=== PATIENT | female | born 1975 | race Caucasian/White ===

== ENCOUNTER → 2016-04-12 | Outpatient (CLI) | payer BC | LOC: FIMAGING 07:25 | DX: Z12.31 Encounter for screening mammogram for malignant neoplasm of breast (principal) | CPT/HCPCS: G0202 ==

== ENCOUNTER → 2016-07-09 | Outpatient (CLI) | payer BC | LOC: FIMAGING 11:20 | PROVIDERS: ATTEND Surgery | DX: E04.2 Nontoxic multinodular goiter (principal) ==

== ENCOUNTER → 2017-04-13 | Outpatient (CLI) | payer BC | LOC: FIMAGING 08:09 | PROVIDERS: ATTEND Obstetrics & Gynecology | DX: Z12.31 Encounter for screening mammogram for malignant neoplasm of breast (principal) ==

== ENCOUNTER → 2017-07-12 | Outpatient (CLI) | payer BC | LOC: FIMAGING 16:35 | PROVIDERS: ATTEND Surgery | DX: E04.1 Nontoxic single thyroid nodule (principal) ==

== ENCOUNTER → 2017-10-31 | Outpatient (CLI) | payer BC | LOC: FIMAGING 13:49 | PROVIDERS: ATTEND Internal Medicine | DX: N83.202 Unspecified ovarian cyst, left side (principal); Z97.5 Presence of (intrauterine) contraceptive device ==

== ENCOUNTER → 2017-12-28 | Outpatient (CLI) | payer BC | LOC: FIMAGING 07:16 | PROVIDERS: ATTEND Surgery | DX: R10.10 Upper abdominal pain, unspecified (principal) ==

== ENCOUNTER 2018-01-27 11:05 | Day surgery (SDC) | payer BC ==
[2018-01-27] MEDS ORDERED: ceFAZolin 2 GM/DEXTROSE 100 ML IV ONE (11:45)
[2018-01-27] MEDS ORDERED: LIDOCAINE 1% 2 ML INJ ID PRN (11:46)
[2018-01-27] MEDS ORDERED: LR 1,000 ML IV ONE (11:46)
[2018-01-27] MEDS ORDERED: BUPIVACAINE 0.25% 10 ML SDV ONE (12:35)
[2018-01-27] MEDS ORDERED: IOTHALAMATE MEG (CONRAY) 50 ML VIAL IV ONE (12:36)
--- NOTE | 2018-01-27 12:50 | PDHPUP ---
History & Physical Update H&P update statement: This history and physical update is based on an assessment of the patient which was completed after admission or registration (within 24 hours), but prior to the surgery/procedure. H&P update: H&P reviewed & patient examined, no change in patient's condition since H&P completed
[2018-01-27] MEDS ORDERED: ACETAMINOPHEN 500 MG TAB PO PRN (14:06)
[2018-01-27] MEDS ORDERED: DEXAMETHASONE 4 MG/ML VIAL IVP PRN (14:06)
[2018-01-27] MEDS ORDERED: oxyCODONE IR 5 MG TAB PO PRN (14:06)
[2018-01-27] MEDS ORDERED: ONDANSETRON 4 MG/2 ML VIAL IVP PRN ×2 (14:06→15:43)
[2018-01-27] MEDS ORDERED: NALOXONE HCL 0.4 MG/ML INJ IVP PRN (14:06)
[2018-01-27] MEDS ORDERED: ALBUTEROL 3 ML DEYVIAL IH PRN (14:06)
--- NOTE | 2018-01-27 14:08 | PDANEPAE ---
ANE History of Present Illness Lap Sugey ANE Past Medical History - Cardiovascular History Hx Hypertension: No Hx Arrhythmias: No Hx Chest Pain: No Hx Coronary Artery / Peripheral Vascular Disease: No Hx CHF / Valvular Disease: No Hx Palpitations: Yes Cardiovascular History Comment: HX PALPITATIONS - MONITORED. HEART MURMUR - MILD. PFO SINCE - SMALL - Pulmonary History Hx COPD: No Hx Asthma/Reactive Airway Disease: No Hx Recent Upper Respiratory Infection: No Hx Oxygen in Use at Home: No Hx Sleep Apnea: No Sleep Apnea Screening Result - Last Documented: Negative - Neurologic History Hx Cerebrovascular Accident: No Hx Seizures: No Hx Dementia: No Neurologic History Comment: HX - HEADACHES - Endocrine History Hx Diabetes: No Endocrine History Comment: GOITER - Renal History Hx Renal Disorders: No - Liver History Hx Hepatic Disorders: No Hepatic History Comment: GALL BLADDER SXS CURRENTLY - Neurological & Psychiatric Hx Hx Neurological and Psychiatric Disorders: No - Cancer History Hx Cancer: No - Congenital Disorder History Hx Congenital Disorders: No - GI History Hx Gastrointestinal Disorders: Yes Gastrointestinal History Comment: NAUSEA AFTER MEALS - Other Health History Other Health History: ACNE. HX HPV - CLEARED IN 2012 - Surgical History Prior Surgeries: CHILDHOOD URINARY SURG. CORTISONE INJS CERVICAL ANE Review of Systems Review of Systems: - Exercise capacity METS (RN): 6 METS ANE Patient History - Allergies Allergies/Adverse Reactions: No Known Allergies Allergy (Unverified 10/20/11 16:59) - Home Medications Home Medications: [place]-3 Fatty Acids/Fish Oil [[place] 3 1,000 mg Softgel] 09/20/13 [Last Taken ] Vit27&Calcium/Iron/FA [] 09/20/13 [Last Taken 01/20/18] Veltin Gel 01/23/18 [Last Taken 01/13/18] - NPO status NPO Since - Liquids (Date): 01/26/18 NPO Since - Liquids (Time): 21:30 NPO Since - Solids (Date): 01/26/18 NPO Since - Solids (Time): 21:30 - Smoking Hx Smoking Status: Never smoked - Family Anes Hx Family Hx Anesthesia Complications: NEG ANE Labs/Vital Signs - Vital Signs Blood Pressure: 108/69 Heart Rate: 56 Respiratory Rate: 18 O2 Sat (%): 99 Height: 165.1 cm Weight: 58.06 kg ANE Physical Exam - Airway Neck exam: FROM Mallampati Score: Class 2 Mouth exam: normal dental/mouth exam - Pulmonary Pulmonary: clear to auscultation - Cardiovascular Cardiovascular: regular rate and rhythym - ASA Status ASA Status: II ANE Anesthesia Plan Anesthesia Plan: general endotracheal anesthesia
[2018-01-27] MEDS ORDERED: PROPOFOL 200 MG/20 ML VIAL ONE (14:12)
[2018-01-27] MEDS ORDERED: LIDOCAINE 2% 5 ML SDV ONE (14:13)
[2018-01-27] MEDS ORDERED: fentaNYL 100 MCG/2 ML INJ ONE ×3 (14:14→15:40)
[2018-01-27] MEDS ORDERED: ONDANSETRON 4 MG/2 ML VIAL ONE (14:20)
[2018-01-27] MEDS ORDERED: ROCURONIUM 50 MG/5 ML VIAL ONE (14:20)
[2018-01-27] MEDS ORDERED: DEXAMETHASONE 4 MG/ML VIAL ONE (14:20)
[2018-01-27] MEDS ORDERED: SUGAMMADEX SODIUM 200 MG/2 ML VIAL IVP ONE (15:11)
--- NOTE | 2018-01-27 15:27 | POSTANESTH ---
Post Anesthetic Evaluation Cardiovascular Status: Normal, Stable Respiratory Status: Normal, Stable Level of Consciousness/Mental Status: Moderately Sleepy Pain Control: Adequate, Prn Tx Ordered Nausea/Vomiting Control: Adequate, Prn Tx Ordered Complications Possibly Related to Anesthesia: None Noted
--- NOTE | 2018-01-27 15:42 | POSTOPPROG ---
Post Op Note Date of Operation: 01/27/18 Surgeon: David Alcantara (, FACS) Transfer Man: Bobbi Anguiano RN-FA Anesthesiologist: Zia Bains DO Anesthesia: GET(General Endotracheal) Pre-op Diagnosis: cholelithiasis Post-op Diagnosis: cholelithiasis/bilateral paratubal cysts Procedure: lap cholecystectomy/removal paratubal cysts Inf/Abcess present in the surg proc area at time of surgery?: No Complications: none Specimen(s): gallbladder, left paratubal cyst
[2018-01-27] MEDS ORDERED: HYDROmorphONE/DILAUDID 1 MG/ML INJ IVP PRN (15:43)
[2018-01-27] MEDS: fentaNYL 100 MCG/2 ML INJ IVP PRN ×4 (15:44→16:27)
[2018-01-27] MEDS ORDERED: HYDROCODONE/APAP 5/325 TAB PO PRN (15:45)
[2018-01-27] MEDS ORDERED: LR 1,000 ML IV SCH (16:00)
[2018-01-27] MEDS ORDERED: HYDROmorphONE/DILAUDID 2 MG/ML INJ ONE (16:08)
[2018-01-27] MEDS ORDERED: HYDROCODONE/APAP 5/325 TAB ONE (16:08)
[2018-01-27] MEDS: HYDROmorphONE/DILAUDID 2 MG/ML INJ IVP PRN ×2 (16:10→16:28)
--- NOTE | 2018-01-27 16:43 | GOP ---
DATE OF OPERATION: 01/27/2018 SURGEON: David Alcantara MD, FACS SSRS DEVELOPER: Bobbi Kemp RN. ANESTHESIA: General endotracheal. ANESTHESIOLOGIST: Zia Bains DO. PREOPERATIVE DIAGNOSIS: 1. Cholelithiasis. 2. History of left ovarian cyst. POSTOPERATIVE DIAGNOSIS: 1. Cholelithiasis and chronic cholecystitis. 2. Bilateral paratubal cysts. PROCEDURE PERFORMED: Laparoscopic cholecystectomy and incidental removal of paratubal cysts FINDINGS: Mild chronic appearing inflammation of the gallbladder with typical anatomy. Normal-appearing liver. Few adhesions between the omentum and infundibulum of the gallbladder. Bilateral paratubal cysts with normal- appearing ovaries and uterus. Unremarkable appendix. ESTIMATED BLOOD LOSS: 10 cc. DESCRIPTION OF PROCEDURE: After informed consent was obtained, the patient was brought to the operating room and placed under general anesthesia. The abdomen was prepped and draped in usual fashion. Before proceeding, a time-out and identification of patient was performed. The safe and timely completion of the operation required the help of a skilled surgeon assistant and Bobbi Anguiano RN- FA was requested to attend 0.25% Marcaine was used to infiltrate the infraumbilical skin. A longitudinal incision was made through the base of the umbilicus and carried through skin and subcutaneous tissues. Hemostasis was secured with cautery. Ventral traction was applied to the abdominal wall, and a Veress needle was introduced into the peritoneal cavity. Position was confirmed by saline infusion and a pneumoperitoneum established with CO2 gas to a pressure of 15 mmHg. The Veress needle was withdrawn and replaced with a 12 mm bladeless trocar. A 5 mm 30- degree scope was introduced, and the peritoneal cavity was visualized. Additional 5 mm ports were placed in the upper midline to the right of the falciform ligament. Two right upper quadrant ports were placed in the midclavicular line and right anterior axillary line. This allowed introduction of atraumatic grasping forceps which were used to grasp the gallbladder by the fundus and to retract it cephalad. Adhesions between the omentum and the infundibulum of the gallbladder were taken down with the Harmonic Scalpel. The peritoneum overlying the cystic duct was then dissected circumferentially and the cystic artery divided with the Harmonic Scalpel. Once the cystic duct had been clearly visualized, it was doubly hemo clipped and divided. The gallbladder was then dissected away from the liver edge using the Harmonic Scalpel with minimal bleeding. Hemostasis appeared secure upon completion. The gallbladder was retrieved through the umbilical 12 mm port site and was submitted for permanent section. Attention was directed to the pelvis as the patient had a history of an adnexal cyst, and the left tube and ovary were inspected and noted to have a paratubal cyst but no evidence of ovarian cyst. This was removed with the Harmonic Scalpel and retrieved intact and submitted for histologic confirmation. A very small paratubal cyst on the right side was also removed with a Harmonic Scalpel and lost within the 5 mm port that it was retrieved through. The operative field appeared hemostatic. The umbilical port was closed with a transfascial closure needle and 0 Vicryl suture. The pneumoperitoneum was evacuated. The remaining ports were removed. Subcutaneous tissues were approximated with 3-0 Monocryl suture. Skin was closed with 4-0 Monocryl suture in a subcuticular fashion. Topical Dermabond was applied. Patient was returned extubated to the recovery room in satisfactory condition. Needle, sponge, and instrument counts were correct. COMPLICATIONS: None. /[id number]/MODL MTDD
[2018-01-27 17:50] VITALS: BP 123/51
== END 2018-01-27 17:50 | disposition home or self-care (01) ==
LOC: FSGY 11:05
PROVIDERS: ATTEND Surgery
DX: K80.10 Calculus of gallbladder with chronic cholecystitis without obstruction (principal); N83.8 Other noninflammatory disorders of ovary, fallopian tube and broad ligament; Q21.1 Atrial septal defect
CPT/HCPCS: J0690; J1100; J1170; J2405; J2704; J3010; Q9961

== ENCOUNTER → 2018-04-24 | Outpatient (CLI) | payer BC | LOC: FIMAGING 07:47 | PROVIDERS: ATTEND Internal Medicine | DX: Z13.21 Encounter for screening for nutritional disorder (principal) ==

== ENCOUNTER → 2018-06-28 | Outpatient (CLI) | payer BC | LOC: FIMAGING 07:06 | PROVIDERS: ATTEND Surgery | DX: E04.1 Nontoxic single thyroid nodule (principal) ==